=== PATIENT | female | born 1950 | race Two or more races ===

== ENCOUNTER → 2016-07-12 | Outpatient (CLI) | payer OTHER ==
[~2016-07-12] MED LIST: HTN; THYROID; [UNRECOGNIZED DRUG - OTHER]
--- NOTE | 2016-07-12 10:14 | RADRPT ---
PROCEDURE: XR right knee. CLINICAL INDICATION: Knee pain TECHNIQUE: AP weightbearing, PA weightbearing, lateral weightbearing and sunrise views are availab le for review. COMPARISON: None available FINDINGS: There is severe osteoarthrosis involving the medial tibial femoral compartment, lateral tibial femor al compartment and patellofemoral compartment. This is associated with joint space narrowing, subcho ndral sclerosis and osteophytosis. There is otherwise normal mineralization, architecture and alignment. No fractures are identified. No osseous lesions are identified. The soft tissues are unremarkable. IMPRESSION: Severe osteoarthrosis involving the medial tibial femoral compartment, lateral tibial femoral compar tment and patellofemoral compartment. RPTAT: [facility] .Baljit Esteves MD, MD Date Time Electronically viewed and signed by .Baljit Esteves MD, on 07/12/2016 10:14 .B/
== END | disposition home or self-care (01) ==
LOC: HKI 09:33
PROVIDERS: ATTEND Orthopaedic Surgery
DX: M17.11 Unilateral primary osteoarthritis, right knee (principal); I10 Essential (primary) hypertension; E11.9 Type 2 diabetes mellitus without complications; E07.9 Disorder of thyroid, unspecified; E66.01 Morbid (severe) obesity due to excess calories
CPT/HCPCS: 73564; Z7500; G0463

== ENCOUNTER → 2017-05-29 | Outpatient (CLI) | END | disposition home or self-care (01) ==

== ENCOUNTER → 2017-07-22 | Outpatient (CLI) | END | disposition home or self-care (01) ==

== ENCOUNTER → 2017-09-30 | Outpatient (CLI) | END | disposition home or self-care (01) ==

== ENCOUNTER → 2017-11-17 | Outpatient (CLI) | END | disposition home or self-care (01) ==

== ENCOUNTER → 2017-12-15 | Outpatient (CLI) | END | disposition home or self-care (01) ==

== ENCOUNTER 2017-12-24 13:36 | Inpatient (IN) | END 2017-12-28 12:15 | disposition home health service (06) | DRG 470 ==

== ENCOUNTER → 2018-01-06 | Outpatient (CLI) | END | disposition home or self-care (01) ==

== ENCOUNTER → 2018-02-03 | Outpatient (CLI) | END | disposition home or self-care (01) ==

== ENCOUNTER → 2018-03-12 | Outpatient (CLI) | payer OTHER ==
[~2018-03-12] MED LIST changes: +AMLO-147 PO; +BENA20TA4 PO; +BISO5TAB21 PO; +GLIM2TAB PO; -HTN; +LEVO100T82 PO; +METF500T24 PO; -THYROID; -[UNRECOGNIZED DRUG - OTHER]
--- NOTE | 2018-03-12 10:50 | PN ---
Date/Time of Note Date/Time of Note DATE: 03/12/18 TIME: 10:46 Outpatient Progress Note Chief Complaint Range of motion check to the right knee HPI 67-year-old female presents today for range of motion check to the right knee status post total knee arthroplasty on 12/24/2017. Patient has been having ongoing stiffness. Patient states that there was a delay/lapse in time from the time of discharge from hospital to when she could have actually started postoperative physical therapy as there was difficulty getting scheduling at the facility. Patient's daughter also states that patient did not have much physical activity being performed while in no sessions. Continues with stiff knee. Denies any significant pain. No falls or injury since she was last seen. Review of Systems Const: No Fever, no chills, no Fatigue, normal appetite, no diaphoresis. Resp: No SOB, no wheezing, no chest pain. CV: No chest pain, no palpitaions, no VILLATORO. Physical Exam Blood pressure is 130/64, temperature is 98.1 degrees, pulse is 44, respiratory rate is 14, height is 5 foot 3 inches, weight is 177 pounds General Appearance: well-developed, well-nourished, in no acute distress. Right knee: Well-healed surgical scar to the right knee. No tenderness to palpation. Normal sensory examination to light touch. Patient is able to actively flex up to 95 degrees with goniometer measurement. Full extension. Pain past 95 degrees. Passive range of motion past 95 degrees was not successful. Allergies Coded Allergies: No Known Allergy (Unverified , 12/24/17) Assessment/Plan Problems: (1) Stiffness of right knee (2) Status post total right knee replacement * At this stage patient is 3 months postop and still having difficulty in regards to range of motion to the knee. Significant scar tissue formation. Lengthy discussion had with patient and patient's daughter today. Recommend direct consultation with Dr. Escobar to determine whether best option is manipulation under anesthesia as physical therapy has been unsuccessful and at-home therapy to improve range of motion has also been unsuccessful. Medications Home Meds Reported Medications Amlodipine Besylate* (Amlodipine Besylate*) 10 Mg Tablet, 10 MG PO DAILY, #30 TAB 12/24/17 Benazepril Hcl* (Benazepril Hcl*) 20 Mg Tablet, 20 MG PO DAILY, #30 TAB 12/24/17 Glimepiride* (Glimepiride*) 2 Mg Tablet, 2 MG PO WITH BREAKFAST DINNE, TAB 12/24/17 Metformin Hcl* (Metformin Hcl*) 500 Mg Tablet, 500 MG PO WITH BREAKFAST DINNE, #60 TAB 12/24/17 Bisoprolol Fumarate* (Bisoprolol Fumarate*) 5 Mg Tablet, 5 MG PO DAILY, TAB 12/24/17 Levothyroxine Sodium* (Levoxyl*) 100 Mcg Tablet, 100 MCG PO BEFORE BREAKFAST, #30 TAB 12/24/17 SHABNAM LINN PA-C Mar 12, 2018 10:50
== END | disposition home or self-care (01) ==
LOC: HKI 10:26
PROVIDERS: ATTEND Orthopaedic Surgery Adult Reconstructive Orthopaedic Surgery
DX: Z47.1 Aftercare following joint replacement surgery (principal); M25.661 Stiffness of right knee, not elsewhere classified; Z96.651 Presence of right artificial knee joint